=== PATIENT | female | born 1985 | race Caucasian/White ===

== ENCOUNTER → 2017-02-18 | Outpatient (REF) ==
[~2017-02-18] MED LIST: BACTRIM DS 8001 TAB PO; DOXYCYCLINE 10100 MG PO; IBU600 MG PO; IRON325 MG PO; METRONIDAZOLE500 MG PO; NO HOME MEDICATIONS; PERCOCET 325 MG1 TA2 PO; PRENATAL1 TA7 PO
== END ==
LOC: ZLAB.WCH 10:22
DX: Z01.89 Encounter for other specified special examinations (principal)

== ENCOUNTER → 2018-06-19 | Outpatient (CLI) | payer BC | LOC: COL.LAB 14:57 | DX: R07.9 Chest pain, unspecified (principal) ==